=== PATIENT | male | born 1960 | race Caucasian/White ===

== ENCOUNTER 2016-10-19 05:45 | Day surgery (SDC) | payer OTHER ==
[~2016-10-19] VITALS: Ht 188 cm; Wt 115.0 kg
[~2016-10-19 05:45] MED LIST: AMLO-511 PO; ASPI-825 PO; GABA600T PO; IBUP-2070 PO; METO-325 PO; OXYC1TAB PO; PARO40TA PO; RISP2 PO; TRAZ-144 PO; VICOT PO
[2016-10-19] MEDS ORDERED: SODIUM CHLORIDE 0.9% 1,000 ML IV ONE ×2 (06:05→06:30)
[2016-10-19] MEDS ORDERED: 0.9% SODIUM CHLORIDE 10 ML SYRINGE IVP ONE (06:05)
[2016-10-19] MEDS ORDERED: CARV6 PO (06:16)
== END 2016-10-19 07:15 | disposition home or self-care (01) ==
LOC: SURGERY 05:45
PROVIDERS: ATTEND Internal Medicine Critical Care Medicine
DX: R05 Cough (principal); J84.9 Interstitial pulmonary disease, unspecified; R91.8 Other nonspecific abnormal finding of lung field; Z53.8 Procedure and treatment not carried out for other reasons
CPT/HCPCS: 93005; J7030

== ENCOUNTER 2018-08-01 07:09 | Emergency (ER) | payer OTHER ==
[~2018-08-01] VITALS: Ht 185.4 cm; Wt 131.8 kg
[~2018-08-01 07:09] MED LIST changes: +CARV6 PO; -IBUP-2070 PO; -METO-325 PO; -PARO40TA PO; -RISP2 PO; -TRAZ-144 PO; -VICOT PO
[2018-08-01] MEDS ORDERED: APIX5TAB PO (07:29)
[2018-08-01] MEDS ORDERED: FURO40 PO (07:29)
[2018-08-01] MEDS ORDERED: TRAZ-220 PO (07:29)
[2018-08-01] MEDS ORDERED: SPIR25 PO (07:29)
[2018-08-01] MEDS ORDERED: DSS100 PO (07:29)
[2018-08-01] MEDS ORDERED: SENN-176 PO (07:29)
[2018-08-01 10:09] VITALS: BP 151/89
== END 2018-08-01 10:10 | disposition home or self-care (01) ==
LOC: EMS 07:11
DX: S80.01XA Contusion of right knee, initial encounter (principal); M19.90 Unspecified osteoarthritis, unspecified site; M25.461 Effusion, right knee; I11.9 Hypertensive heart disease without heart failure; G89.29 Other chronic pain; Z79.899 Other long term (current) drug therapy; W01.0XXA Fall on same level from slipping, tripping and stumbling without subsequent striking against object, initial encounter; Y93.01 Activity, walking, marching and hiking; Y92.89 Other specified places as the place of occurrence of the external cause; Y99.8 Other external cause status

== ENCOUNTER 2024-02-28 12:38 | Emergency (ER) | payer OTHER ==
[~2024-02-28] VITALS: Ht 188 cm; Wt 122.7 kg
[~2024-02-28 12:38] MED LIST changes: +AMLO-257 PO; -AMLO-511 PO; +APIX5TAB PO; -ASPI-825 PO; +DSS100 PO; +FURO40TA6 PO; +SENN-374 PO; +SPIR-37 PO; +TRAZ-257 PO
[2024-02-28 12:41] VITALS: BP 142/88; PULSE 74; RESP 16; TEMP 99.1; O2SAT 99
[2024-02-28] MEDS ORDERED: FAMO20 PO (12:49)
[2024-02-28] MEDS ORDERED: ATOR20TA PO (12:49)
[2024-02-28] MEDS ORDERED: TAMS0.4C94 PO (12:49)
[2024-02-28 13:34] LABS: BASOPHILS % (AUTO) 0.3 % (0.0-2.0); EOSINOPHILS % (AUTO) 3.3 % (1.0-6.0); HEMATOCRIT 43.7 % (41-53); HEMOGLOBIN 15.3 g/dL (13.5-17.5); LYMPHOCYTES # (AUTO) 2.1 K/uL (1.0-4.8); LYMPHOCYTES % (AUTO) 29.2 % (22.0-44.0); MEAN CORPUSCULAR HEMOGLOBIN 32.6 pg (26.0-34.0); MEAN CORPUSCULAR HGB CONC 35.1 G/dL (31.0-37.0); MEAN CORPUSCULAR VOLUME 93 fL (80-100); MONOCYTES # (AUTO) 0.7 K/uL (0.1-1.0); MONOCYTES % (AUTO) 10.2 % (2.0-9.0); PLATELET COUNT (AUTO) 225 K/uL (150-450); RED CELL DISTRIBUTION WIDTH 13.4 % (11.5-14.5); WHITE BLOOD COUNT (AUTO) 7.1 K/uL (4.5-11.0)
[2024-02-28 14:01] LABS: ANION GAP 14 mmol/L (8-16); CALCIUM, TOTAL 9.2 mg/dL (8.8-10.5); CARBON DIOXIDE 24 mmol/L (22-29); CHLORIDE 102 mmol/L (98-107); CREATININE 1.04 mg/dL (0.60-1.30); GLOMERULAR FILTR. RATE CALC > 60 mL/min (>60); GLUCOSE,RANDOM 102 mg/dL (70-110); LIPASE 36 U/L (16-77); POTASSIUM 3.5 mmol/L (3.5-5.1); SODIUM SERUM 140 mmol/L (136-145); UREA NITROGEN, BLOOD 15 mg/dL (7-18)
== END 2024-02-28 17:01 | disposition left against medical advice (07) ==
LOC: EMS 12:38
DX: R19.7 Diarrhea, unspecified (principal); I11.0 Hypertensive heart disease with heart failure; I50.9 Heart failure, unspecified; K21.9 Gastro-esophageal reflux disease without esophagitis; N40.0 Benign prostatic hyperplasia without lower urinary tract symptoms; Z79.01 Long term (current) use of anticoagulants; Z98.890 Other specified postprocedural states
CPT/HCPCS: 80048; 83690; 85025; 86850; 86900; 86901; 99283